=== PATIENT | female | born 1985 | race Caucasian/White ===

== ENCOUNTER 2017-06-03 10:26 | Emergency (ER) | payer MEDICAID, SELFPAY ==
[~2017-06-03] VITALS: Ht 160 cm; Wt 65.0 kg
[2017-06-03 10:27] VITALS: BP 115/81
[2017-06-03] MEDS ORDERED: IBUPROFEN 200 MG TABLET ONE (10:50)
[2017-06-03] MEDS ORDERED: IBUPROFEN 200 MG TABLET PO ONE (11:00)
== END 2017-06-03 11:48 | disposition home or self-care (01) ==
LOC: ED 10:37
DX: S93.491A Sprain of other ligament of right ankle, initial encounter (principal); X50.1XXA Overexertion from prolonged static or awkward postures, initial encounter; Y93.89 Activity, other specified; Y92.89 Other specified places as the place of occurrence of the external cause; Y99.8 Other external cause status
CPT/HCPCS: 99284

== ENCOUNTER 2017-11-07 13:06 | Emergency (ER) | payer MEDICAID ==
[~2017-11-07] VITALS: Ht 152.4 cm; Wt 63.5 kg
[2017-11-07 13:19] VITALS: BP 115/80
[2017-11-07] MEDS ORDERED: KETOROLAC 30 MG/1 ML IM ONE (14:30)
[2017-11-07] MEDS ORDERED: KETOROLAC 30 MG/1 ML ONE (14:53)
== END 2017-11-07 15:18 | disposition home or self-care (01) ==
LOC: ED 14:00
DX: M25.511 Pain in right shoulder (principal); M06.9 Rheumatoid arthritis, unspecified
CPT/HCPCS: 72050; 73030; 96372; 99284; J1885

== ENCOUNTER 2018-03-10 21:59 | Emergency (ER) | payer MEDICAID ==
[~2018-03-10] VITALS: Ht 160 cm; Wt 65.7 kg
[2018-03-10] MEDS ORDERED: HYDROcodone/APAP 5/325 TABLET PO STA (22:33)
[2018-03-10] MEDS ORDERED: HYDROcodone/APAP 5/325 TABLET ONE (22:34)
[2018-03-10 23:41] VITALS: BP 131/74
== END 2018-03-10 23:43 | disposition home or self-care (01) ==
LOC: ED 23:30
DX: S76.111A Strain of right quadriceps muscle, fascia and tendon, initial encounter (principal); J45.909 Unspecified asthma, uncomplicated; M06.9 Rheumatoid arthritis, unspecified; X58.XXXA Exposure to other specified factors, initial encounter; Y93.89 Activity, other specified; Y99.8 Other external cause status; Y92.89 Other specified places as the place of occurrence of the external cause
CPT/HCPCS: 99284

== ENCOUNTER 2018-03-15 10:15 | Emergency (ER) | payer MEDICAID ==
[~2018-03-15] VITALS: Ht 160 cm; Wt 66.2 kg
[2018-03-15 10:35] VITALS: BP 116/83
== END 2018-03-15 11:53 | disposition home or self-care (01) ==
LOC: ED 11:47
DX: S76.111A Strain of right quadriceps muscle, fascia and tendon, initial encounter (principal); M06.9 Rheumatoid arthritis, unspecified; J45.909 Unspecified asthma, uncomplicated; F17.200 Nicotine dependence, unspecified, uncomplicated; W21.07XA Struck by softball, initial encounter; Y93.64 Activity, baseball; Y92.89 Other specified places as the place of occurrence of the external cause; Y99.8 Other external cause status
CPT/HCPCS: 99283

== ENCOUNTER 2018-05-25 21:00 | Emergency (ER) | payer MEDICAID ==
[~2018-05-25] VITALS: Ht 160 cm; Wt 64.5 kg
[2018-05-25 21:03] VITALS: BP 127/88
[2018-05-25 23:29] LABS: BASOPHILS # (AUTO) 0.07 x10^3/uL (0-0.1); BASOPHILS % (AUTO) 1 % (0-1); EOSINOPHILS # (AUTO) 0.12 x10^3/uL (0-0.4); EOSINOPHILS % (AUTO) 2 % (1-7); LYMPHOCYTES # (AUTO) 2.01 x10^3/uL (1-3.4); LYMPHOCYTES % (AUTO) 39 % (22-44); MD NO; MEAN CORPUSCULAR HEMOGLOBIN 32.4 pg (27.0-34.8); MEAN CORPUSCULAR HGB CONC 34.6 g/dL (32.4-35.8); MEAN CORPUSCULAR VOLUME 93.5 fL (80-100); MEAN PLATELET VOLUME 8.8 fL (7.4-10.4); MONOCYTES # (AUTO) 0.41 x10^3/uL (0.2-0.8); MONOCYTES % (AUTO) 8 % (2-9); NEUTROPHILS # (AUTO) 2.54 x10^3/uL (1.8-6.8); NEUTROPHILS % (AUTO) 49 % (42-75); PLATELET COUNT 222 x10^3/uL (130-400); RED BLOOD COUNT 4.19 x10^6/uL (3.82-5.3); RED CELL DISTRIBUTION WIDTH 12.2 % (9.6-15.2)
[2018-05-25] MEDS ORDERED: ASPIRIN 81 MG TABLET CHEW PO ONE (23:30)
[2018-05-25] MEDS ORDERED: ASPIRIN 81 MG TABLET CHEW ONE (23:35)
[2018-05-25 23:41] LABS: ALBUMIN 3.7 g/dL (3.4-5.0); ANION GAP 8 mmol/L (5-15); CALCIUM 8.5 mg/dL (8.5-10.1); CHLORIDE 105 mmol/L (98-107); CREATININE 0.74 mg/dL (0.55-1.02)
[2018-05-25 23:45] LABS: TROPONIN I < 0.015 ng/mL (0.000-0.045)
== END 2018-05-26 00:48 | disposition home or self-care (01) ==
LOC: ED 05-26 00:12
DX: R07.2 Precordial pain (principal); J45.909 Unspecified asthma, uncomplicated; M06.9 Rheumatoid arthritis, unspecified; F17.200 Nicotine dependence, unspecified, uncomplicated; Z90.710 Acquired absence of both cervix and uterus
CPT/HCPCS: 36415; 71045; 80048; 82040; 83880; 84484; 85025; 93005; 99285

== ENCOUNTER 2020-04-01 15:53 | Emergency (ER) | payer BC, MEDICAID ==
[~2020-04-01] VITALS: Ht 160 cm; Wt 52.0 kg
[2020-04-01 16:10] VITALS: BP 123/77
[2020-04-01] MEDS ORDERED: KETOROLAC 30 MG/1 ML IM ONE (16:30)
[2020-04-01] MEDS ORDERED: KETOROLAC 30 MG/1 ML ONE (16:41)
--- NOTE | 2020-04-01 16:41 | NUR ---
HORTICULTURAL THERAPIST: MEDICATED BY VERITO PAREDES
--- NOTE | 2020-04-01 16:47 | NUR ---
TASK RN: PT STATES [place] AND SHE FELT A STING ON HER INSIDE RIGHT WRIST. PT STATES INTIALLY IT SWELLED UP QUITE A BIT. NOW THERE IS NOTED TO BE SOME DISCOLORATION AND SWELLING AND STATES PAINFUL BUT DENIES NUMBNESS AND TINGLING.
== END 2020-04-01 17:18 | disposition home or self-care (01) ==
LOC: ED 16:50
DX: S60.211A Contusion of right wrist, initial encounter (principal); J45.909 Unspecified asthma, uncomplicated; M06.9 Rheumatoid arthritis, unspecified; Z90.710 Acquired absence of both cervix and uterus; Z88.8 Allergy status to other drugs, medicaments and biological substances; X58.XXXA Exposure to other specified factors, initial encounter; Y93.89 Activity, other specified; Y92.89 Other specified places as the place of occurrence of the external cause; Y99.8 Other external cause status
CPT/HCPCS: 29125; 73110; 96372; 99283; J1885